=== PATIENT | female | born 1990 | race Caucasian/White ===

== ENCOUNTER 2021-03-08 09:36 | Emergency (ER) | payer BC ==
[2021-03-08 09:56] VITALS: PULSE 97; O2SAT 99
[2021-03-08] MEDS ORDERED: XYLOCAINE 1% HCL 20 ML MDV ONE (10:03)
[2021-03-08] MEDS ORDERED: ZOFRAN ODT 4 MG ONE (10:03)
[2021-03-08] MEDS ORDERED: MORPHINE SULFATE 4 MG INJ ONE ×2 (10:03→10:35)
[2021-03-08] MEDS ORDERED: Adacel Vial IM ONE ×2 (10:04→10:05)
[2021-03-08] MEDS ORDERED: ZOFRAN ODT 4 MG PO ONE (10:04)
[2021-03-08] MEDS ORDERED: MORPHINE SULFATE 4 MG INJ IV ONE (10:04)
--- NOTE | 2021-03-08 10:04 | ERPHSYRPT ---
- History of Present Illness Time Seen by Provider: 03/08/21 09:50 Source: patient, family Exam Limitations: no limitations Patient Subjective Stated Complaint: pt here for multil dog bites to lower legs, she was out running today and was attacked by multi dogs Triage Nursing Assessment: pt alert, arrived per wc, resp easy, face mask applied, pt has multi bite johnston superfical and left leg has laceration 1cm x 3/4 tp outer aspect .back of right leg 4x1.5 cm , left leg back leg 3x 1 cm laceration, bruising to back thigh , no bleeding Physician History: This is a 30-year-old white female who [place] dogs attacked her biting her on her lower extremities. Patient presents with multiple dog bites and puncture wounds to her bilateral lower extremities. Patient is allergic to penicillin. Her tetanus status is not up-to-date. Patient does not know she is used Keflex or Rocephin in the past. The dog's pattern hand stated that all the dogs have their immunizations up-to-date. Timing/Duration: today Quality: painful Severity: moderate Location: extremities (Bilateral lower extremities from the knee distally down to the ankles) Possible Causes: other (Dog bites) Allergies/Adverse Reactions: Penicillins Allergy (Verified 03/08/21 09:56) Hx Tetanus, Diphtheria Vaccination/Date Given: No Hx Influenza Vaccination/Date Given: No Hx Pneumococcal Vaccination/Date Given: No Immunizations Up to Date: Yes Travel Risk - International Travel Have you traveled outside of the country in past 3 weeks: No - Coronavirus Screening Are you exhibiting any of the following symptoms?: No Close contact with a COVID-19 positive Pt in past 14-21 Days: No - Vaccine Status Have you recieved a Covid-19 vaccination: No - Review of Systems Constitutional: No Symptoms Eyes: No Symptoms Ears, Nose, & Throat: No Symptoms Respiratory: No Symptoms Cardiac: No Symptoms Abdominal/Gastrointestinal: No Symptoms Genitourinary Symptoms: No Symptoms Musculoskeletal: No Symptoms Skin: Other (Multiple bite sites bilateral lower extremities from the knees to the ankles mostly lateral and posteriorly) Neurological: No Symptoms Psychological: No Symptoms Hematologic/Lymphatic: No Symptoms Immunological/Allergic: No Symptoms All Other Systems: Reviewed and Negative - Past Medical History Pertinent Past Medical History: No Neurological History: No Pertinent History ENT History: No Pertinent History Cardiac History: No Pertinent History Respiratory History: No Pertinent History Endocrine Medical History: No Pertinent History Musculoskeletal History: No Pertinent History GI Medical History: No Pertinent History History: No Pertinent History Psycho-Social History: No Pertinent History Female Reproductive Disorders: No Pertinent History - Past Surgical History Past Surgical History: No Neuro Surgical History: No Pertinent History Cardiac: No Pertinent History Respiratory: No Pertinent History Gastrointestinal: No Pertinent History Genitourinary: No Pertinent History Musculoskeletal: No Pertinent History Female Surgical History: No Pertinent History - Social History Smoking Status: Never smoker Drug Use: none Patient Lives Alone: No - Female History Hx Last Menstrual Period: february Hx Now: No - Nursing Vital Signs Nursing Vital Signs: Initial Vital Signs Temperature 98.1 F 03/08/21 09:42 Pulse Rate 97 H 03/08/21 09:42 Respiratory Rate 18 03/08/21 09:42 Blood Pressure 147/114 03/08/21 09:42 O2 Sat by Pulse Oximetry 99 03/08/21 09:42 Pain Scale Pain Intensity 10 - Physical Exam General Appearance: moderate distress, alert, anxiety Eye Exam: PERRL/EOMI, eyes nml inspection Ears, Nose, Throat Exam: normal ENT inspection, moist mucous membranes, tonsillar exudate Neck Exam: normal inspection, non-tender, supple Respiratory Exam: airway intact, No chest tenderness, No respiratory distress Gastrointestinal/Abdomen Exam: No tenderness Pelvic Exam: not done Rectal Exam: not done Back Exam: normal inspection, normal range of motion, No CVA tenderness, No crispin tebral tenderness Neurologic Exam: alert, oriented x 3, cooperative, compounder helper II-XII nml as tested, normal mood/affect, nml cerebellar function, nml station & gait, sensation nml, other (See below) Skin Exam: other (Multiple dog bite sites bilateral lower extremities from the knees distal to the ankles. The majority of bites are posteriorly and lateral ly. No foreign bodies present. Very mild oozing from skin edges) Lymphatic Exam: No adenopathy SpO2 Interpretation: normal SpO2: 99 O2 Delivery: Room Air Procedures - Laceration/Wound Repair Anterior/Posterior Lateral Distal Other Time of Procedure: 10:15 Wound Location: Left, Right, lower leg Wound Length (cm): 10 (Total length of closure of laceration sites) Wound's Depth, Shape: superficial, linear Wound Explored: no foreign body noted (Performed in bloodless field to the base. No foreign bodies were present. All sites are) Irrigated: Yes ( dog bites) Hibiclens Prep: Yes Anesthesia: 1% Lidocaine Volume Anesthetic (ccs): 20 Wound Repaired With: sutures, Mario (A combination of sutures and mario were performed to loosely approximate the larger and wider bite sites. I was unable to document, prior to the dressing change placement, the total number of mario and sutures) Layer Closure?: No Progress: 03/08/21 10:53 After loose approximation of the largest in widest dog bite sites, the wounds were cleaned and dried with Hibiclens and saline solution and dried. Thin layer of bacitracin ointment was applied and nonstick Telfa was used to cover the wound sites of her bilateral lower extremities. Next, Kerlix wrap was used to wrap the sites. - Course Nursing assessment & vital signs reviewed: Yes Ordered Tests: Medication Summary Generic Name Dose Route Start Last Admin Trade Name Freq PRN Reason Stop Dose Admin Bacitracin Zinc 1 gm 03/09/21 10:00 Baciguent 30 Gm TP 04/08/21 09:59 DAILY SAYRA Discontinued Medications Generic Name Dose Route Start Last Admin Trade Name Freq PRN Reason Stop Dose Admin Diphtheria/Tetanus/Acell Pertussis 0.5 ml 03/08/21 10:05 03/08/21 10:08 Adacel Vial IM 03/08/21 10:06 0.5 ml .ONCE ONE Administration Diphtheria/Tetanus/Acell Pertussis Confirm 03/08/21 10:04 Adacel Vial Administered 03/08/21 10:05 Dose 0.5 ml IM .STK-MED ONE Lidocaine HCl Confirm 03/08/21 10:03 Xylocaine 1% Hcl 20 Ml Mdv Administered 03/08/21 10:04 Dose 10 ml .ROUTE .STK-MED ONE Lidocaine HCl 10 ml 03/08/21 10:10 Xylocaine 1% Hcl 20 Ml Mdv IJ 03/08/21 10:11 STAT ONE Morphine Sulfate 4 mg 03/08/21 10:04 03/08/21 10:09 Morphine Sulfate 4 Mg Inj IV 03/08/21 10:05 4 mg STAT ONE Administration Morphine Sulfate Confirm 03/08/21 10:03 Morphine Sulfate 4 Mg Inj Administered 03/08/21 10:04 Dose 4 mg .ROUTE .STK-MED ONE Morphine Sulfate Confirm 03/08/21 10:35 Morphine Sulfate 4 Mg Inj Administered 03/08/21 10:36 Dose 4 mg .ROUTE .STK-MED ONE Morphine Sulfate 4 mg 03/08/21 10:38 Morphine Sulfate 4 Mg Inj IM 03/08/21 10:39 STAT ONE Ondansetron HCl 4 mg 03/08/21 10:04 03/08/21 10:10 Zofran Odt 4 Mg PO 03/08/21 10:05 4 mg STAT ONE Administration Ondansetron HCl Confirm 03/08/21 10:03 Zofran Odt 4 Mg Administered 03/08/21 10:04 Dose 4 mg .ROUTE .STK-MED ONE - Progress Progress: improved, pain not gone completely Counseled pt/family regarding: diagnosis, need for follow-up - Departure Departure Disposition: Home Clinical Impression: Dog bite Condition: Stable Critical Care Time: No Referrals: BRENDA SULTANA [Primary Care Provider] - Additional Instructions: Keep current dressing in place until tomorrow evening. Tomorrow evening, remove the dressings and wash the sites with soap and water. Blot dry use a hairdryer to dry the sites. Apply thin layer of antibiotic ointment to the areas and then cover with a nonstick gauze and rewrapped your legs bilaterally. Suture and staple removal in approximately 10 days. Take your antibiotics as prescribed. Prescriptions: Hydrocodone/APAP 5/325 [[place] 5/325 mg] 1 each PO Q8H PRN PRN #8 tablet MDD 3 PRN Reason: Pain Metronidazole 500 mg [Flagyl 500 MG] 500 mg PO TID #21 tablet Doxycycline Hyclate 100 mg [Vibramycin 100 MG] 100 mg PO BID #14 tab
[2021-03-08] MEDS ORDERED: XYLOCAINE 1% HCL 20 ML MDV IJ ONE (10:10)
[2021-03-08] MEDS ORDERED: MORPHINE SULFATE 4 MG INJ IM ONE (10:38)
[2021-03-08] MEDS ORDERED: Vibramycin 100 MG PO ONE (10:58)
[2021-03-08] MEDS ORDERED: Flagyl 500 MG PO ONE (10:58)
[2021-03-08 11:43] VITALS: BP 137/82
[2021-03-09] MEDS ORDERED: BACIGUENT 30 GM TP SCH (10:00)
== END 2021-03-08 11:42 | disposition home or self-care (01) ==
LOC: ED 09:36
DX: S81.812A Laceration without foreign body, left lower leg, initial encounter (principal); S70.11XA Contusion of right thigh, initial encounter; S81.832A Puncture wound without foreign body, left lower leg, initial encounter; S81.831A Puncture wound without foreign body, right lower leg, initial encounter; W54.0XXA Bitten by dog, initial encounter; Y93.89 Activity, other specified; Y92.89 Other specified places as the place of occurrence of the external cause
CPT/HCPCS: 90471; 90715; 96372; 99284; J2270; Q0162; A9270-GY

== ENCOUNTER 2021-03-12 12:39 | Emergency (ER) | payer BC ==
[2021-03-12 13:02] VITALS: BP 161/90; PULSE 74
--- NOTE | 2021-03-12 13:34 | ERPHSYRPT ---
- History of Present Illness Time Seen by Provider: 03/12/21 13:10 Source: patient Exam Limitations: no limitations Patient Subjective Stated Complaint: pt here for a wound recheck, has multi dog bites to lower legs on Triage Nursing Assessment: pt alert, walked in, resp easy, skin w/d/p. multi healing dog bites to lower kegs, has yellow and blue bruising to lower legs . right foot swollen and re Physician History: Patient is a 30-year-old female presents to emergency department for a wound check. Patient states that she was attacked by 5 dogs 4 days ago. Patient presented to our ER. The wounds were treated. Some more wounds were sutured and some were closed via bobby. Patient was started on Flagyl doxycycline and was also given Kelly for pain medication. Patient was taken all medications as prescribed. Patient states that her right foot is now swollen and tender. Patient states she is a decreased sensation of the dorsum of her right foot. No interval trauma. No fever. Symptoms are mild to moderate in intensity. No specific worsening improving factors. Patient voices no other complaints or concerns at this time. Patient's tetanus was updated at the time of her last ED visit. Timing/Duration: day(s) (4 days ago) Severity: moderate Modifying Factors: Improves With: nothing Associated Symptoms: denies symptoms Allergies/Adverse Reactions: Penicillins Allergy (Verified 03/08/21 09:56) Hx Tetanus, Diphtheria Vaccination/Date Given: No Hx Influenza Vaccination/Date Given: No Hx Pneumococcal Vaccination/Date Given: No Immunizations Up to Date: Yes Travel Risk - International Travel Have you traveled outside of the country in past 3 weeks: No - Coronavirus Screening Are you exhibiting any of the following symptoms?: No Close contact with a COVID-19 positive Pt in past 14-21 Days: No - Vaccine Status Have you recieved a Covid-19 vaccination: No - Review of Systems Constitutional: No Symptoms, No Fever, No Chills Eyes: No Symptoms Ears, Nose, & Throat: No Symptoms Respiratory: No Symptoms, No Cough, No Dyspnea Cardiac: No Symptoms, No Chest Pain, No Edema, No Syncope Abdominal/Gastrointestinal: No Symptoms, No Abdominal Pain, No Nausea, No Vomiting, No Diarrhea Genitourinary Symptoms: No Symptoms, No Dysuria Musculoskeletal: No Symptoms, No Back Pain, No Neck Pain Skin: No Symptoms, No Rash Neurological: No Symptoms, No Dizziness, No Focal Weakness, No Sensory Changes Psychological: No Symptoms Endocrine: No Symptoms Hematologic/Lymphatic: No Symptoms Immunological/Allergic: No Symptoms All Other Systems: Reviewed and Negative - Past Medical History Pertinent Past Medical History: No Neurological History: No Pertinent History ENT History: No Pertinent History Cardiac History: No Pertinent History Respiratory History: No Pertinent History Endocrine Medical History: No Pertinent History Musculoskeletal History: No Pertinent History GI Medical History: No Pertinent History History: No Pertinent History Psycho-Social History: No Pertinent History Female Reproductive Disorders: No Pertinent History - Past Surgical History Past Surgical History: No Neuro Surgical History: No Pertinent History Cardiac: No Pertinent History Respiratory: No Pertinent History Gastrointestinal: No Pertinent History Genitourinary: No Pertinent History Musculoskeletal: No Pertinent History Female Surgical History: No Pertinent History - Social History Smoking Status: Never smoker Exposure to second hand smoke: No Drug Use: none Patient Lives Alone: No - Female History Hx Last Menstrual Period: february Hx Now: No - Nursing Vital Signs Nursing Vital Signs: Initial Vital Signs Temperature 97.6 F 03/12/21 13:02 Pulse Rate 74 03/12/21 13:02 Respiratory Rate 16 03/12/21 13:02 Blood Pressure 161/90 03/12/21 13:02 Pain Scale Pain Intensity 5 - Physical Exam General Appearance: no apparent distress, alert Eye Exam: PERRL/EOMI, eyes nml inspection Ears, Nose, Throat Exam: normal ENT inspection, TMs normal, pharynx normal, moist mucous membranes Neck Exam: normal inspection, non-tender, supple, full range of motion Respiratory Exam: normal breath sounds, lungs clear, No respiratory distress Cardiovascular Exam: regular rate/rhythm, normal heart sounds, normal peripheral pulses Gastrointestinal/Abdomen Exam: soft, normal bowel sounds, No tenderness, No mass Back Exam: normal inspection, normal range of motion, No CVA tenderness, No vertebral tenderness Extremity Exam: normal inspection, normal range of motion, pelvis stable, other (There are multiple healing puncture wounds on both lower extremities. No lymph angitis. No cellulitis. No lymphadenopathy. No active drainage. The dorsum of her right foot is erythematous. Mildly tender. The extremity is neurovascular intact distally. Compartments are soft. Cap refill less t) Neurologic Exam: alert, oriented x 3, cooperative, normal mood/affect, sensation nml, No motor deficits Skin Exam: normal color, warm, dry, No rash Lymphatic Exam: No adenopathy SpO2 Interpretation: normal SpO2: 97 O2 Delivery: Room Air - Course Nursing assessment & vital signs reviewed: Yes - Radiology Exams Lower Leg X-ray Interpretation: Teleradiologist Report (The skin bobby are seen projected over the distal right lower leg. No fracture or other significant focal bone lesion of the right tibia or fibula is seen) - Radiology Ultrasound Exam Venous Lower Extremity Ultrasound: tele radiology report (No sonographic or Doppler findings to suggest deep vein thrombosis are seen within the right lower extremity.) Ordered Tests: Active Orders 24 hr Category Date Time Status LOWER LEG Stat Exams 03/12/21 13:34 Completed VENOUS UNILAT/LIMITED EXTREMIT [US] Stat Exams 03/12/21 13:29 Completed - Progress Progress: improved Progress Note: Patient reassessed. She is well. Ultrasound negative for DVT. X-ray negative for fracture dislocation. No subcutaneous air. Patient was evaluated at the bedside by Dr. Butcher our store operations specialist. He will change patient's outpatient antibiotic regimen. Additionally he will have his staff apply an Unna boot to the involved extremity. No other indication for further work-up via the ED at this time. Will discharge home. Patient agrees to follow-up with Dr. Butcher within 48 hours for reevaluation. She voices no other complaints concerns at this time. 03/12/21 14:50 Counseled pt/family regarding: diagnosis, need for follow-up, rad results - Departure Departure Disposition: Home Clinical Impression: Wound cellulitis, Visit for wound check Condition: Stable Critical Care Time: No Referrals: BRENDA SULTANA [Primary Care Provider] - Additional Instructions: Discharge/Care Plan JOSSY PAGAN was seen on 03/12/21 in the Emergency Room. The patient was counseled regarding Diagnosis,Lab results, Imaging studies, need for follow up and when to return to the Emergency Room. Prescriptions given: Discharge Note I have spoken with the patient and/or caregivers. I have explained the patient's condition, diagnosis and treatment plan based on the information available to me at this time. I have answered the patient's and/or caregiver's questions and addressed any concerns. The patient and/or caregivers have as good understanding of the patient's diagnosis, condition and treatment plan as can be expected at this point. The vital signs have been stable. The patient's condition is stable and appropriate for discharge from the emergency department. The patient will pursue further outpatient evaluation with the primary care physician or other designated or consulting physician as outlined in the discharge instructions. The patient and/or caregivers are agreeable to this plan of care and follow-up instructions have been explained in detail. The patient and/or caregivers have received these instruction. The patient/and or caregivers are aware that any significant change in condition or worsening of symptoms should prompt an immediate return to this or the closest emergency department or call 911. Outpatient Orders: Ortho Referral Time Frame: 1 Day, Facility: [facility], Location: [facility]
[2021-03-12 13:38] VITALS: O2SAT 97
--- NOTE | 2021-03-12 14:12 | XRAY ---
Exam: Right lower extremity duplex Doppler venous ultrasound exam from 03/12/2021. Comparison: None. Indication: Redness and swelling within right calf. Technique: Grayscale images, color blood flow images, and Doppler tracings without and with augmentation were obtained throughout the major veins of the right lower extremity. Findings: Normal transducer compression, color blood flow imaging, and Doppler tracings with signal augmentation were seen within practice representative segments of the right common femoral vein, proximal, mid, and distal superficial femoral vein, popliteal vein, and distal posterior tibial veins. I also see a normal color flow imaging and Doppler signal augmentation within the profunda femoral vein. Normal transducer compression, color flow imaging, and Doppler signal are seen within the greater saphenous vein near the greater saphenous vein-superficial femoral vein junction. Impression: 1. No sonographic or Doppler findings to suggest deep venous thrombosis are seen within the right lower extremity.
--- NOTE | 2021-03-12 14:28 | XRAY ---
Two-view right lower leg series from 03/12/2021. Comparison: None. Indication: Patient was bitten by a dog earlier today; bite johnston on lower leg; patient has bobby in lower leg. Findings: 2 AP images and a lateral image of the right lower leg were obtained. I see no acute fracture or other focal bone lesion. Both the right knee joint space and ankle mortise are well preserved. I note 3 skin bobby projected over the distal right lower leg. Correlate clinically. No radiopaque soft tissue foreign body is seen other than the skin bobby. Impression: 1. 3 skin bobby are seen projected over the distal right lower leg. Correlate clinically. 2. No fracture or other significant focal bone lesion of the right tibia or fibula is seen.
--- NOTE | 2021-03-12 16:53 | PCM.CONS ---
Podiatry HPI - Consult Date of Consultation Date: 03/12/21 Reason for Consult: dog bite bilateral lower [facility] with increased pain and swelling to right Consulting Provider: LUX VIZCAINO DPM - [facility] History of Present Illness: Paulette is a very pleasant 30-year-old female who presents to the emergency room for multiple dog bites to the lower extremities. Patient indicates that she was out running on of last week when she was attacked by multiple dogs to the bilateral lower aspect of her legs. She was given Flagyl and doxycycline by the emergency department physician on that day. She indicates that in the last 24 hours she is noted an increase in pain to the right lower extremity and suspects that there is an infection to the wounds. She has noted a significant amount of swelling to this right lower extremity. On the visit on of last week the bilateral lower extremity wounds that were deep were cleansed with sutures and bobby to the larger bites. She presents today with vital signs stable and pain rated as a 5 out of 10. She currently denies any constitutional symptoms of infection. She denies any other pedal complaints at this time Medications & Allergies Home Medications: Home Medication List Doxycycline Hyclate 100 mg [Vibramycin 100 MG] 100 mg PO BID #14 tab 03/08/21 [Rx] Hydrocodone/APAP 5/325 [[place] 5/325 mg] 1 each PO Q8H PRN PRN #8 tablet MDD 3 03/08/21 [Rx] Metronidazole 500 mg [Flagyl 500 MG] 500 mg PO TID #21 tablet 03/08/21 [Rx] Allergies/Adverse Reactions: Allergies Allergy/AdvReac Type Severity Reaction Status Date / Time Penicillins Allergy Verified 03/08/21 09:56 - Past Medical History Past Medical History: No Neurological History: No Pertinent History ENT History: No Pertinent History Cardiac History: No Pertinent History Respiratory History: No Pertinent History Endocrine Medical History: No Pertinent History Musculoskelatal History: No Pertinent History GI Medical History: No Pertinent History History: No Pertinent History Pyscho-Social History: No Pertinent History Reproductive Disorders: No Pertinent History - Female History Hx Last Menstrual Period: february Are you now?: No - Past Surgical History Past Surgical History: No Neuro Surgical History: No Pertinent History Cardiac History: No Pertinent History Respiratory Surgery: No Pertinent History GI Surgical History: No Pertinent History Genitourinary Surgical Hx: No Pertinent History Musculskeletal Surgical Hx: No Pertinent History Female Surgical History: No Pertinent History - Social History Smoking Status: Never smoker Exposure to second hand smoke: No Alcohol: None Drug Use: none Physical Exam - Narrative Narrative Physical Exam: Podiatry Physical Exam: Vascular: DP and PT pulses are palpable to the bilateral lower extremity. Cellulitis noted to the dorsal aspect of the right foot with periwound erythema to multiple of the distal lacerations. No active drainage. Increased warmth to the right lower extremity. There is no streaking however present cellulitis to the dorsal aspect of the foot. No lymphadenopathy on palpation of the lymph nodes at the inguinal or popliteal fossa is. Dermatological multiple deep and superficial lacerations to the bilateral lower extremity anterior and posterior aspects of the leg. Stitches clean dry and intact as well as bobby intact with no evidence of dehiscence at this time. Appear to be healing without complication however pain and periwound erythema noted. Neurological: Equal and symmetrical sensation to the bilateral lower extremity. No neurological deficits noted Musculoskeletal: Deferred at this time. Compartments soft and compressible, wiggles toes.All movers of the bilateral lower extremity are intact without any signs of tendon laceration. Results - Radiology Impressions Radiology Exams & Impressions: Radiology Procedures Category Date Time Status LOWER LEG Stat Exams 03/12/21 13:34 Completed VENOUS UNILAT/LIMITED EXTREMIT [US] Stat Exams 03/12/21 13:29 Completed Assessment/Plan (1) Pain of right lower extremity Status: Acute Code(s): M79.604 - PAIN IN RIGHT LEG (2) Dog bite Status: Acute Code(s): W54.0XXA - BITTEN BY DOG, INITIAL ENCOUNTER (3) Visit for wound check Status: Acute Code(s): Z51.89 - ENCOUNTER FOR OTHER SPECIFIED AFTERCARE (4) Wound cellulitis Status: Acute Assessment & Plan: Initial patient examination and evaluation. Radiographs reviewed demonstrating no soft tissue emphysema at this time therefore likelihood of this being a surgical issue is limitedAt this time. Wound inspection at this time demonstrates no clinical evidence of infection at this time however there is some evidence of Cellulitis To the right lower extremity as indicated with periwound erythema as well as increased warmth to the right lower extremity as well as increased pain. At this time patient would benefit from a change to levofloxacin 500 mg once daily for the next 10 days discontinue doxycycline and metronidazole at this time. Dressing changed at this time consisting of Betadine paint to the bilateral lower extremity and compression dressing with use of an Unna boot. Patient has been advised to not get these dressings wet until follow-up next Friday. Patient has been advised to notify the office of any increase in pain over the course of the next week as this may be an indication of continued infection. If this is the case patient is to call immediately. Pain control will be dispensed. Patient will be provided work note for the next week Follow-up in 1 week Code(s): L03.90 - CELLULITIS, UNSPECIFIED
== END 2021-03-12 15:25 | disposition home or self-care (01) ==
LOC: ED 12:39
DX: L03.116 Cellulitis of left lower limb (principal); L03.115 Cellulitis of right lower limb
CPT/HCPCS: 29580; 73590; 93971; 99243; 99283